=== PATIENT | female | born 1945 | race Caucasian/White ===

== ENCOUNTER 2023-01-13 09:53 | Outpatient (CLI) | payer MEDICARE, OTHER | END 2023-01-13 09:54 | disposition home or self-care (01) | LOC: CSHMAMMO 09:53 | PROVIDERS: ATTEND Family Medicine | DX: M85.851 Other specified disorders of bone density and structure, right thigh (principal); M85.852 Other specified disorders of bone density and structure, left thigh; Z78.0 Asymptomatic menopausal state | CPT/HCPCS: 77080 ==